=== PATIENT | male | born 1965 | race Caucasian/White ===

== ENCOUNTER → 2020-10-31 | Outpatient (CLI) | payer OTHER ==
[~2020-10-31] MED LIST: BAYER CHEWABLE81 MG PO; CORDARONE 200M200 MG PO; PROTONIX40 MG PO
== END ==
LOC: HEART 5 07-10 10:00
DX: I48.91 Unspecified atrial fibrillation (principal); R06.02 Shortness of breath; I51.7 Cardiomegaly; R93.1 Abnormal findings on diagnostic imaging of heart and coronary circulation
CPT/HCPCS: 93306

== ENCOUNTER → 2021-08-04 | Outpatient (CLI) | payer OTHER | LOC: HEART 5 09:01 | DX: R06.02 Shortness of breath (principal); I48.91 Unspecified atrial fibrillation | CPT/HCPCS: 94010; 94729 ==